=== PATIENT | female | born 1950 | race Caucasian/White ===

== ENCOUNTER 2023-10-11 10:11 | Emergency (ER) | payer MEDICARE, OTHER, SELFPAY ==
[2023-10-11 10:12] VITALS: BMI 27.0
[2023-10-11 10:14] VITALS: BP 129/72
--- NOTE | 2023-10-11 10:27 | ED.GENMED ---
History of Present Illness
General
Chief Complaint: Breathing Problem
Time Seen by Provider: 10/11/23 10:16
Travel History
Have you had any contact with someone who has COVID-19?: No
Do you have any symptoms of coronavirus? Fever > 100 degrees, chills, cough, shortness of breath, sore throat, loss of taste or smell, muscle aches, or headache?: Yes
Symptoms:: sob
History of Present Illness
History of Present Illness:
72-year-old female with history of COPD and hyperlipidemia presents to the emergency department for evaluation of shortness of breath that began abruptly overnight. She is 2 days status post right pleurodesis performed at the [place] [facility]
[place] secondary to recurrent pneumothoraces. She is on 2 L nasal cannula chronically. She denies any significant chest pain other than that the chest tube insertion site on the right. No reported fevers or chills. Denies any leg swelling
or calf pain. Does not take any anticoagulants
Past History
Past History
ED Past Medical History: COPD, Hypercholesterolemia, Other (History of chronic bronchitis, arthritis, and Bonita's thyroiditis, cataracts, anxiety, back pain, and dizziness) and Other (90% spontaneous pneumothorax September 10, 2023)
ED Past Surgical History: Appendectomy
Social History
Tobacco: Former smoker
Alcohol: Occasional
Personal:
Living: with family
Employment: Retired
Family History
Family History: Sudden (COPD and hypertension ) and Other
Review of Systems
Review of Systems
Allergies reviewed?: Yes
All Other Systems: ROS reviewed and negative except as documented in HPI and ROS
Phy Exam
Physical Exam
Physical Exam:
GEN: Well appearing, NAD, WDWN
Eyes: PERRLA, EOMs intact, no scleral icterus
HENT: NCAT, oral mucosa moist
Lungs: Poor inspiratory effort, diminished bibasilar sounds, no wheezing. Chest tube in the R lower chest wall, small amount of serosanguinous drainage, site is clean and dry
Cardiac: Tachycardic, regular
Abdomen: S, NT, ND, NABS, no masses or hepatosplenomegaly
Neuro: AO x 3
MSK: No gross deformity or ecchymosis. 1+ pitting edema BLE. No digital clubbing
Skin: No rashes, petechiae. Normal color, no pallor or jaundice.
Psych: Calm, cooperative, proper hygiene
Scores
Heart Failure Risk
Heart Failure Risk Score: Not Applicable
Course
Orders/Labs/Results
Orders:
Orders
10/11/23 10:17
EKG [Electrocardiogram (*1)] Urgent
Reason for Study: Shortness of Breath
10/11/23 10:18
EKG- Treatment ONCE
10/11/23 10:19
Complete Blood Count/With Diff Urgent
Comprehensive Metabolic Panel Urgent
NT-proBNP Urgent
Troponin I Urgent
Comment: ADD ON
10/11/23 10:24
CT Chest Pe Study Urgent
Comment:
Reason For Exam: SOB/tachycardia, 2d s/p pleurodesis
10/11/23 10:31
Add On- LAB Urgent
Tests Added?: trop
10/11/23 11:33
Oxycodone [Roxicodone] 5 mg PO NOW STA
10/11/23 12:29
Oxycodone [Roxicodone] 5 mg PO NOW STA
Abnormal Lab Results
10/11/23
10:19
RBC 3.31 L 10^6/uL
(4.20-5.40)
Hgb 9.7 L g/dL
(12.0-16.0)
Hct 28.9 L %
(37.0-47.0)
RDW 16.9 H %
(11.5-14.5)
Plt Count 438 H 10^3/uL
(130-400)
Absolute Neuts (auto) 7.0 H 10^3/uL
(1.4-6.5)
Absolute Lymphs (auto) 0.7 L 10^3/uL
(1.2-3.4)
Absolute Monos (auto) 0.8 H 10^3/uL
(0.1-0.6)
Neutrophils % 78.2 H %
(42.2-75.2)
Lymphocytes % 7.6 L %
(20.5-51.1)
Sodium 132 L mmol/L
(135-145)
Creatinine 0.5 L mg/dL
(0.6-1.0)
Glucose 115 H mg/dl
(70-99)
Total Protein 6.0 L g/dl
(6.3-8.2)
Albumin 3.3 L g/dl
(3.5-5.0)
10/11/23 10:19
10/11/23 10:19
Vital Signs
Initial and Last Documented VS:
Initial Vital Signs
Temp Pulse Resp Pulse Ox
98.4 F 103 18 100
10/11/23 10:12 10/11/23 10:12 10/11/23 10:12 10/11/23 10:12
Last Documented Vital Signs
Temp Pulse Resp BP Pulse Ox
98.4 F 101 14 93/47 100
10/11/23 10:12 10/11/23 13:45 10/11/23 13:45 10/11/23 13:00 10/11/23 10:43
MDM/Problems Addressed
MDM/Problems Addressed:
I reviewed the findings on CT angiogram from today with the patient's thoracic surgery team at [facility], apparently at time of discharge earlier this week she did have approximately a 40% pneumothorax. No evidence of PE.
Patient's symptoms are likely partially due to anxiety coupled with poor pain control. Discussed appropriate pain regimen, outpatient thoracic surgery follow-up recommended
Comment
Comment:
EKG independently interpreted by me shows normal sinus rhythm at a rate of 99 with frequent ventricular ectopy, significant limitation interpretation due to patient motion artifact, no obvious ST changes concerning for ischemia
*Critical Care Note
Total Time (30-74mins, 75-104mins- exclusive of procedures): Not Applicable
ED Attending Note
-
Portions of this chart may have been created with voice recognition software.� Occasional wrong word or��sound alike� substitutions may have occurred due to the inherent limitations of voice recognition software.
Discharge Plan
Departure
Patient Disposition: Home (Routine Discharge)
Date of Disposition: 10/11/23
Time of Disposition: 13:12
Patient with high blood pressure during this ER visit?: No
Discharge Problem:
Post-operative pain, Pneumothorax
Instructions: Shortness of Breath (Dyspnea) (DC)
Prescriptions:
No Action
ascorbic acid (vitamin C) [Vitamin C] 1,000 MG tablet
1,000 mg PO DAILY
meloxicam 15 MG tablet
15 mg PO DAILY
levothyroxine 100 MCG tablet
100 mcg PO MOTUWETHFRSA@0700
lorazepam 1 MG tablet
1 mg PO HS
Patient Comments:
08/25/2023, patient filled this medication on 06/07/2023 for 90 tablets according to PDMP.
albuterol sulfate 2.5 mg /3 mL (0.083 %) Solution For Nebulization
2.5 mg INHALATION R Q4HPRN PRN (Reason: respiratory infection)
montelukast [Singulair] 10 mg Tablet
10 mg PO HS
levalbuterol tartrate [Xopenex HFA] 45 mcg/actuation Hfa Aerosol Inhaler
2 inh INHALATION R Q4HPRN PRN (Reason: sob/wheezing)
budesonide-formoterol [Symbicort] 160-4.5 mcg/actuation Hfa Aerosol Inhaler
1 inh INHALATION R BID
azithromycin 250 mg Tablet
250 mg PO MOWEFR
aspirin 81 mg Tablet,Delayed Release (Dr/Ec)
81 mg PO DAILY
simvastatin 40 mg Tablet
40 mg PO HS
potassium gluconate 595 mg (99 mg) Tablet
595 mg PO DAILY
Spiriva Respimat 2.5 mcg/actuation Mist
2 puff INHALATION R DAILY
fiber
6 tab PO NOON
docusate sodium [Stool Softener] 100 mg Capsule
200 mg PO DAILY PRN (Reason: constipation)
Women's One Daily
1 tab PO DAILY
calcium citrate-vitamin D3
1 tab PO DAILY
acetaminophen [Tylenol] 325 mg Tablet
650 mg PO Q6H PRN (Reason: mild pain)
benzonatate 100 mg capsule
200 mg PO TID
Referrals:
Reema Lynn DO [Family Provider] -
Activity Restrictions/Additional Instructions:
Take your medications on a schedule as we discussed
Interventions
Interventions:
*Risk Screen - Suicide Last Done: 10/11/23 10:12
*General Assessment Last Done: 10/11/23 10:12
*Neglect/Abuse Screening Last Done: 10/11/23 10:12
ED- Fall Risk Assessment Last Done: 10/11/23 10:43
*ED COVID-19 Vaccine History Last Done: 10/11/23 10:12
*Nursing Disposition Last Done: 10/11/23 14:02
ED- Cardiac Assessment Last Done: 10/11/23 10:43
ED- Pulmonary Assessment Last Done: 10/11/23 10:43
Discharge Date and Time
Discharge Date/Time: 10/11/23 14:02
[2023-10-11 10:35] LABS: % Basophils 0.8 % (0-2); % Eosinophils 3.8 % (0-6); % Immature Granulocytes 0.4 % (0-0.5); % Lymphocytes 7.6 % (20.5-51.1); % Monocytes 9.2 % (1.7-9.3); % Neutrophils 78.2 % (42.2-75.2); Absolute Basophils 0.1 10^3/uL (0-0.2); Absolute Eosinophils 0.3 10^3/uL (0-0.7); Absolute Lymphocytes 0.7 10^3/uL (1.2-3.4); Absolute Monocytes 0.8 10^3/uL (0.1-0.6); Hematocrit 28.9 % (37.0-47.0); Hemoglobin 9.7 g/dL (12.0-16.0); Mean Corp Hgb Conc. 33.6 g/dL (33.0-37.0); Mean Corpuscular Hgb 29.3 pg (27.0-31.0); Mean Corpuscular Volume 87.3 fL (81.0-99.0); Mean Platelet Volume 9.3 fL (7.4-10.4); Nucleated Red Blood Cells % 0 %; Platelet Count 438 10^3/uL (130-400); Red Blood Cell Count 3.31 10^6/uL (4.20-5.40); Red Cell Dist. Width 16.9 % (11.5-14.5)
[2023-10-11 10:56] LABS: ALT (SGPT) 14 U/L (0-35); AST (SGOT) 26 U/L (14-36); Albumin 3.3 g/dl (3.5-5.0); Alkaline Phosphatase 94 U/L (38-126); Blood Urea Nitrogen 10 mg/dl (7-17); Calcium 9.1 mg/dl (8.4-10.2); Carbon Dioxide 25 mmol/L (22-30); Chloride 102 mmol/L (98-107); Estimated Creatinine Clearance 76 ml/min; Glucose 115 mg/dl (70-99); Potassium 4.3 mmol/L (3.5-5.1); Sodium 132 mmol/L (135-145); Total Bilirubin 0.5 mg/dl (0.2-1.3); eGFR > 60.00
[2023-10-11 11:00] VITALS: BP 104/61
[2023-10-11 11:01] LABS: NT-proBNP 1040 pg/ml; Troponin I < 0.012 ng/ml
[2023-10-11] MEDS: ROXICODONE 5 MG PO ×2 (11:35→13:05)
[2023-10-11 13:00] VITALS: BP 93/47
== END 2023-10-11 14:02 | disposition home or self-care (01) ==
LOC: EMR 10:11
PROVIDERS: EMERGENCY PHYSICIAN Student in an Organized Health Care Education/Training Program; FAMILY PHYSICIAN Family Medicine
DX: G89.18 Other acute postprocedural pain (principal); J95.811 Postprocedural pneumothorax; J44.9 Chronic obstructive pulmonary disease, unspecified; E78.00 Pure hypercholesterolemia, unspecified; F41.9 Anxiety disorder, unspecified; E06.3 Autoimmune thyroiditis; Z46.82 Encounter for fitting and adjustment of non-vascular catheter; Z82.49 Family history of ischemic heart disease and other diseases of the circulatory system; Z87.891 Personal history of nicotine dependence; Z90.49 Acquired absence of other specified parts of digestive tract
CPT/HCPCS: 99283; 71275; 80053; 83880; 84484; 85025; 93005; Q9967

== ENCOUNTER 2023-10-31 13:36 | Emergency (ER) | payer MEDICARE, OTHER, SELFPAY ==
[2023-10-31 13:42] VITALS: BP 127/88
[2023-10-31 14:13] VITALS: BMI 25.5
--- NOTE | 2023-10-31 14:16 | ED.GENMED ---
History of Present Illness
General
Chief Complaint: Chest Problem
Source: patient
Exam Limitations: none
Time Seen by Provider: 10/31/23 13:52
Travel History
Have you had any contact with someone who has COVID-19?: No
Do you have any symptoms of coronavirus? Fever > 100 degrees, chills, cough, shortness of breath, sore throat, loss of taste or smell, muscle aches, or headache?: No
History of Present Illness
History of Present Illness:
72-year-old female with history of recurrent pneumothoraces presents complaining of increased chest pain starting this morning and getting worse. She was here several weeks ago found to have a recurrent pneumothoraces and was sent to [facility]
[place]. She had a pleurodesis procedure performed and a chest tube placed. The chest tube has been draining up until this morning. She feels as though it is clogged. She was sent in for an outpatient x-ray by her CT surgery group and was
then recommended to come here for evaluation. She denies fevers. No new cough. She is not anticoagulated. No other complaints at this time
Past History
Past History
ED Past Medical History: COPD, Hypercholesterolemia, Other (History of chronic bronchitis, arthritis, and Bonita's thyroiditis, cataracts, anxiety, back pain, and dizziness) and Other (90% spontaneous pneumothorax September 10, 2023)
ED Past Surgical History: Appendectomy
Social History
Tobacco: Former smoker
Alcohol: Occasional
Personal:
Living: with family
Employment: Retired
Family History
Family History: Sudden (COPD and hypertension ) and Other
Phy Exam
Physical Exam
Physical Exam:
General: Well-developed female no acute respiratory distress
HEENT: Normocephalic atraumatic neck is supple
Heart: Regular rate and rhythm no murmurs
Lungs: diminished on the right
Extremities: No cyanosis
Course
Orders/Labs/Results
Orders:
Orders
10/31/23 14:03
HYDROmorphone [Dilaudid] 0.5 mg IV NOW STA
10/31/23 15:12
Complete Blood Count/With Diff Urgent
10/31/23 16:17
Comprehensive Metabolic Panel Urgent
10/31/23 17:04
Acetaminophen [Tylenol] 650 mg PO NOW STA
Gabapentin [Neurontin] 300 mg PO NOW STA
Oxycodone [Roxicodone] 5 mg PO NOW STA
Abnormal Lab Results
10/31/23 10/31/23
15:12 16:17
RBC 4.04 L 10^6/uL
(4.20-5.40)
Hgb 11.7 L g/dL
(12.0-16.0)
Hct 36.0 L %
(37.0-47.0)
MCHC 32.5 L g/dL
(33.0-37.0)
RDW 16.4 H %
(11.5-14.5)
Absolute Monos (auto) 0.8 H 10^3/uL
(0.1-0.6)
Monocytes % 10.6 H %
(1.7-9.3)
Sodium 134 L mmol/L
(135-145)
Creatinine 0.5 L mg/dL
(0.6-1.0)
Total Protein 5.9 L g/dl
(6.3-8.2)
Albumin 3.2 L g/dl
(3.5-5.0)
10/31/23 15:12
10/31/23 16:17
Vital Signs
Initial and Last Documented VS:
Initial Vital Signs
Temp Pulse Resp BP Pulse Ox
98.7 F 100 18 127/88 95
10/31/23 13:42 10/31/23 13:42 10/31/23 13:42 10/31/23 13:42 10/31/23 13:42
Last Documented Vital Signs
Temp Pulse Resp BP Pulse Ox
98.7 F 96 20 127/88 100
10/31/23 13:42 10/31/23 14:28 10/31/23 14:28 10/31/23 13:42 10/31/23 14:28
MDM/Problems Addressed
Differential Diagnosis Includes:
I have reviewed the x-ray done earlier today which demonstrates now a 50% pneumothorax on the right side with chest tube in place. This is somewhat larger in size than last x-ray. Despite the pneumothorax patient is not in respiratory distress
satting at 99% on room air. Will check labs administer pain medicine call placed into CT surgery PA for recommendation
*Critical Care Note
Total Time (30-74mins, 75-104mins- exclusive of procedures): Not Applicable
Update Note
Update Note:
CT surgery staff came down and exchanged the Heimlich valve at the end of the patient's chest tube. The valve is now functioning. She was given her regular scheduled medications afterwards and was observed and is now stable for discharge. Relayed
this information to the patient's CT surgery staff at [facility] as well
ED Attending Note
-
Portions of this chart may have been created with voice recognition software.� Occasional wrong word or��sound alike� substitutions may have occurred due to the inherent limitations of voice recognition software.
Discharge Plan
Departure
Patient Disposition: Home (Routine Discharge)
Date of Disposition: 10/31/23
Time of Disposition: 17:57
Patient with high blood pressure during this ER visit?: No
Discharge Problem:
chest tube malfunction
Instructions: Chest Tubes
Prescriptions:
No Action
levothyroxine 100 MCG tablet
100 mcg PO MOTUWETHFRSA@0700
lorazepam 1 MG tablet
1 mg PO HS
Patient Comments:
10/31/23--patient filled this medication on 04/30/23 for 90 tablets according to PDMP.
montelukast [Singulair] 10 mg Tablet
10 mg PO HS
levalbuterol tartrate [Xopenex HFA] 45 mcg/actuation Hfa Aerosol Inhaler
2 inh INHALATION R Q4HPRN PRN (Reason: sob/wheezing)
budesonide-formoterol [Symbicort] 160-4.5 mcg/actuation Hfa Aerosol Inhaler
1 inh INHALATION R BID
simvastatin 40 mg Tablet
40 mg PO HS
Spiriva Respimat 2.5 mcg/actuation Mist
2 puff INHALATION R DAILY
docusate sodium [Stool Softener] 100 mg Capsule
200 mg PO DAILY PRN (Reason: constipation)
acetaminophen [Tylenol] 325 mg Tablet
650 mg PO Q6HPRN PRN (Reason: mild pain)
gabapentin 300 mg Capsule
300 mg PO BID
oxycodone 5 mg Tablet
5 mg PO Q6HPRN PRN (Reason: severe pain)
Referrals:
Reema Lynn DO [Family Provider] -
Activity Restrictions/Additional Instructions:
Continue current medication regimen. Please follow-up with your thoracic surgeons at [facility].
Interventions
Interventions:
*Risk Screen - Suicide Last Done: 10/31/23 14:30
*General Assessment Last Done: 10/31/23 14:30
*Neglect/Abuse Screening Last Done: 10/31/23 14:30
ED- Fall Risk Assessment Last Done: 10/31/23 14:30
*ED COVID-19 Vaccine History Last Done: 10/31/23 14:30
ED- Cardiac Assessment Last Done: 10/31/23 14:30
ED- Pulmonary Assessment Last Done: 10/31/23 14:30
[2023-10-31] MEDS: DILAUDID 0.5 MG IV (14:21)
[2023-10-31 15:18] LABS: % Basophils 0.8 % (0-2); % Eosinophils 2.8 % (0-6); % Immature Granulocytes 0.3 % (0-0.5); % Lymphocytes 21.4 % (20.5-51.1); % Monocytes 10.6 % (1.7-9.3); % Neutrophils 64.1 % (42.2-75.2); Absolute Basophils 0.1 10^3/uL (0-0.2); Absolute Eosinophils 0.2 10^3/uL (0-0.7); Absolute Lymphocytes 1.7 10^3/uL (1.2-3.4); Absolute Monocytes 0.8 10^3/uL (0.1-0.6); Absolute Neutrophils 5.1 10^3/uL (1.4-6.5); Hemoglobin 11.7 g/dL (12.0-16.0); Mean Corp Hgb Conc. 32.5 g/dL (33.0-37.0); Mean Corpuscular Volume 89.1 fL (81.0-99.0); Mean Platelet Volume 10.1 fL (7.4-10.4); Nucleated Red Blood Cells % 0 %; Platelet Count 306 10^3/uL (130-400); Red Blood Cell Count 4.04 10^6/uL (4.20-5.40); Red Cell Dist. Width 16.4 % (11.5-14.5); White Blood Cell Count 7.9 10^3/uL (4.8-10.8)
[2023-10-31 16:37] LABS: ALT (SGPT) 10 U/L (0-35); AST (SGOT) 21 U/L (14-36); Albumin 3.2 g/dl (3.5-5.0); Alkaline Phosphatase 75 U/L (38-126); Blood Urea Nitrogen 13 mg/dl (7-17); Calcium 8.9 mg/dl (8.4-10.2); Carbon Dioxide 25 mmol/L (22-30); Chloride 106 mmol/L (98-107); Estimated Creatinine Clearance 67 ml/min; Glucose 87 mg/dl (70-99); Sodium 134 mmol/L (135-145); Total Bilirubin 0.5 mg/dl (0.2-1.3); Total Protein 5.9 g/dl (6.3-8.2); eGFR > 60.00
[2023-10-31] MEDS: NEURONTIN 300 MG PO (17:46)
[2023-10-31] MEDS: ROXICODONE 5 MG PO (17:46)
[2023-10-31] MEDS: TYLENOL 650 MG PO (17:46)
[2023-10-31 17:50] VITALS: BP 132/86
== END 2023-10-31 18:36 | disposition home or self-care (01) ==
LOC: EMR 13:36
PROVIDERS: Physician Assistant; EMERGENCY PHYSICIAN Emergency Medicine; FAMILY PHYSICIAN Family Medicine
DX: T85.698A Other mechanical complication of other specified internal prosthetic devices, implants and grafts, initial encounter (principal); X58.XXXA Exposure to other specified factors, initial encounter; J44.9 Chronic obstructive pulmonary disease, unspecified; E78.00 Pure hypercholesterolemia, unspecified; E06.3 Autoimmune thyroiditis; F41.9 Anxiety disorder, unspecified; Z82.49 Family history of ischemic heart disease and other diseases of the circulatory system; Z87.891 Personal history of nicotine dependence; Z90.49 Acquired absence of other specified parts of digestive tract
CPT/HCPCS: 99283; 96374; 71046; 80053; 85025

== ENCOUNTER → 2023-11-21 12:43 | Outpatient (REF) | payer MEDICARE, OTHER, SELFPAY | LOC: HWRAD 12:43 | PROVIDERS: ATTENDING PHYSICIAN Internal Medicine Critical Care Medicine; FAMILY PHYSICIAN Family Medicine | DX: J93.83 Other pneumothorax (principal) | CPT/HCPCS: 71046 ==

== ENCOUNTER → 2023-12-26 10:11 | Outpatient (REF) | payer MEDICARE, OTHER, SELFPAY | LOC: HWRAD 10:11 | PROVIDERS: ATTENDING PHYSICIAN Internal Medicine Critical Care Medicine; FAMILY PHYSICIAN Family Medicine | DX: J41.8 Mixed simple and mucopurulent chronic bronchitis (principal); J43.2 Centrilobular emphysema; J44.1 Chronic obstructive pulmonary disease with (acute) exacerbation | CPT/HCPCS: 71046 ==

== ENCOUNTER → 2024-04-28 12:14 | Outpatient (REF) | payer MEDICARE, OTHER, SELFPAY | LOC: HWRAD 12:14 | PROVIDERS: ATTENDING PHYSICIAN Internal Medicine Critical Care Medicine; FAMILY PHYSICIAN Family Medicine | DX: J43.2 Centrilobular emphysema (principal) | CPT/HCPCS: 71046 ==

== ENCOUNTER → 2024-07-22 12:39 | Outpatient (REF) | payer MEDICARE, OTHER, SELFPAY | LOC: HWRAD 12:39 | PROVIDERS: ATTENDING PHYSICIAN Internal Medicine; FAMILY PHYSICIAN Family Medicine | DX: M54.51 Vertebrogenic low back pain (principal) | CPT/HCPCS: 72110 ==

== ENCOUNTER 2024-12-28 23:36 | Emergency (ER) | payer MEDICARE, OTHER, SELFPAY ==
[2024-12-28 23:40] VITALS: BP 140/111
--- NOTE | 2024-12-28 23:43 | ED.GENMED ---
History of Present Illness
General
Chief Complaint: Suicidal Ideation
Source: patient
Time Seen by Provider: 12/28/24 23:38
Nursing documentation reviewed up to this point in time: agreed with
History of Present Illness
History of Present Illness:
74-year-old female presents via EMS after acute suicide attempt. She admits to drinking whiskey and taking 7 Ativan. she texted her daughter 'see you in [place]'. Patient recently lost her in September and has been depressed since. History
is limited due to patient condition.
Past History
Past History
ED Past Medical History: COPD, Hypercholesterolemia, Other (History of chronic bronchitis, arthritis, and Bonita's thyroiditis, cataracts, anxiety, back pain, and dizziness) and Other (90% spontaneous pneumothorax September 10, 2023)
ED Past Surgical History: Appendectomy
Social History
Tobacco: Former smoker
Alcohol: Occasional
Personal:
Living: with family
Employment: Retired
Family History
Family History: Sudden (COPD and hypertension ) and Other
Review of Systems
Review of Systems
All Other Systems: Not applicable
Constitutional: Reports no symptoms
EENT: Reports no symptoms
Respiratory: Reports no symptoms
Cardiac: Reports no symptoms
ABD/GI: Reports nausea
: Reports no symptoms
Musculoskeletal: Reports no symptoms
Skin: Reports no symptoms
Neurological: Reports no symptoms
Endocrine: Reports no symptoms
Hematologic/Lymphatic: Reports no symptoms
Psychiatric: Reports depression, anxiety and suicidal
Phy Exam
General Physical Exam
General Presentation: moderate distress
General age: appears stated age
General Skin: warm and dry
General Habitus: normal
General Mental: alert
General Hydration: appears well hydrated
ENT Exam
ENT Exam: EOMI, pharynx normal, neck supple and normocephalic
Eye Exam
Eye Exam: PERRL, cornea clear and conjunctiva normal
Cardiovascular Exam
Cardiovascular Exam: regular rate/rhythm and no edema
Pulmonary Exam
Pulmonary Exam: lungs clear and no respiratory distress
Gastrointestinal Exam
Gastrointestinal Exam: normal bowel sounds, non tender, soft, no organomegaly, no pulsatile mass and non distended
Neurological Exam
Neurological Exam: alert and oriented x3 (somnulent)
Musculoskeletal Exam
Musculoskeletal Exam: full ROM
Skin Exam
Skin Exam: normal color, warm/dry, no rash and no petechia
Psychiatric Exam
Psychiatric Exam: normal mood/affect
Course
Orders/Labs/Results
Orders:
Orders
12/28/24 23:40
Crisis Consult Urgent
Reason for Consult: overdose, etoh/ativan
Acetaminophen Urgent
Alcohol Urgent
Complete Blood Count/With Diff Urgent
Comprehensive Metabolic Panel Urgent
PTT Urgent
Prothrombin Time Urgent
Salicylate Urgent
Urinalysis Reflex To Culture Urgent
Date Specimen was Collected: 12/29/24
Time Specimen was Collected: 04:34
Urine Drug Abuse Screen Urgent
Date Specimen was Collected: 12/29/24
Time Specimen was Collected: 04:34
0.9% Sodium Chloride 500 ml [Nss] 500 ml IV BOLUS
12/28/24 23:41
1:1 Observation - Suicide/ Violent Behavior As Directed
Crisis Consult Urgent
Reason for Consult: suicidal ideation/ overdose
12/29/24 01:30
Oxygen Therapy [O2 Therapy] [RESP] Urgent
Titrate/Wean O2 to maintain O2 sat greater than (%): 92
12/29/24 04:35
Fentanyl, Urine Urgent
12/29/24 05:41
Acetaminophen [Tylenol] 500 mg .ROUTE .STK-MED ONE
12/29/24 05:44
Acetaminophen [Tylenol] 500 mg PO NOW STA
12/29/24 13:03
Electrocardiogram (*1) Urgent
Reason for Study: Fatigue / Weakness
EKG- Treatment ONCE
12/29/24 13:13
Levothyroxine [Synthroid] 100 mcg PO NOW STA
12/29/24 13:16
Gabapentin [Neurontin] 300 mg PO NOW STA
12/29/24 13:21
Budesonide/Formoterol 80/4.5 [Symbicort 80/4.5 Mcg Inhaler] 2 puff INH R NOW STA
12/29/24 13:31
Tiotropium [place] 2.5 Mcg [Spiriva Respimat 2.5 Mcg] 2 puff INH R NOW STA
12/29/24 15:19
COVID-19 Antigen Urgent
Source: Nasal Swab
12/29/24 22:08
Gabapentin [Neurontin] 300 mg PO NOW STA
12/29/24 23:14
Lorazepam [Ativan] 1 mg PO NOW STA
Abnormal Lab Results
12/29/24 12/29/24
00:42 04:35
RBC 3.56 L 10^6/uL
(4.20-5.40)
Hgb 11.2 L g/dL
(12.0-16.0)
Hct 32.4 L %
(37.0-47.0)
MCH 31.5 H pg
(27.0-31.0)
RDW 14.6 H %
(11.5-14.5)
MPV 10.6 H fL
(7.4-10.4)
Creatinine 0.5 L mg/dL
(0.6-1.0)
Salicylates < 1.0 L mg/dl
(2.0-20.0)
Acetaminophen < 10 L ug/ml
(10-30)
U Benzodiazepines Scrn Positive H
(Negative)
12/29/24 00:42
12/29/24 00:42
Vital Signs
Initial and Last Documented VS:
Initial Vital Signs
BP
140/111
12/28/24 23:40
Last Documented Vital Signs
Temp Pulse Resp BP Pulse Ox
98.0 F 91 18 138/79 96
12/29/24 21:00 12/29/24 21:00 12/29/24 21:00 12/29/24 21:00 12/29/24 21:00
*Critical Care Note
Total Time (30-74mins, 75-104mins- exclusive of procedures): Not Applicable
ED Attending Note
-
Portions of this chart may have been created with voice recognition software.� Occasional wrong word or��sound alike� substitutions may have occurred due to the inherent limitations of voice recognition software.
Discharge Plan
Departure
Patient Disposition: Psych Facility
Date of Disposition: 12/29/24
Time of Disposition: 04:03
Condition: Fair
Discharge Problem:
Suicide attempt, Alcohol intoxication
Prescriptions:
No Action
levothyroxine 100 MCG tablet
100 mcg PO MOTUWETHFRSA@0700
lorazepam 1 MG tablet
1 mg PO HS
montelukast [Singulair] 10 mg Tablet
10 mg PO HS
levalbuterol tartrate [Xopenex HFA] 45 mcg/actuation Hfa Aerosol Inhaler
2 inh INHALATION R Q4HPRN PRN (Reason: sob/wheezing)
budesonide-formoterol [Symbicort] 160-4.5 mcg/actuation Hfa Aerosol Inhaler
2 inh INHALATION R BID
simvastatin 40 mg Tablet
40 mg PO HS
Spiriva Respimat 2.5 mcg/actuation Mist
2 puff INHALATION R DAILY
acetaminophen [Tylenol] 325 mg Tablet
650 mg PO BID
gabapentin 300 mg Capsule
300 mg PO BID
ascorbic acid (vitamin C) [Vitamin C] 1,000 mg Tablet
1,000 mg PO DAILY
azithromycin 250 mg Tablet
250 mg PO MOWEFR
calcium polycarbophil [FiberCon] 625 mg Tablet
1,875 mg PO BID
cholecalciferol (vitamin D3) [Vitamin D3] 25 mcg (1,000 unit) Tablet
25 mcg PO DAILY
calcium carbonate-vitamin D3 [Calcium 500 + D] 500 mg-10 mcg (400 unit) Tablet
2 tab PO DAILY
Referrals:
UNKNOWN - PT DOES,NOT KNOW [Family Provider] -
Interventions
Interventions:
*Risk Screen - Suicide Last Done: 12/28/24 23:38
*General Assessment Last Done: 12/28/24 23:38
*Neglect/Abuse Screening Last Done: 12/28/24 23:38
*ED- Fall Risk Assessment Last Done: 12/28/24 23:38
*ED COVID-19 Vaccine History Last Done: 12/28/24 23:38
*Nursing Disposition Last Done: 12/30/24 02:00
ED-Psychological Assessment Last Done: 12/28/24 23:47
Discharge Date and Time
Discharge Date/Time: 12/30/24 02:00
Print Language: ISRAELI
[2024-12-29] VITALS (13 sets, daily range): BP systolic 108–155; BP diastolic 57–88
[2024-12-29] MEDS: NSS 500 IV (01:06)
[2024-12-29 01:07] LABS: INR 0.89; PT 12.4 Sec (11.4-14.6)
[2024-12-29 01:08] LABS: ALT (SGPT) 19 U/L (0-35); AST (SGOT) 26 U/L (14-36); Acetaminophen < 10 ug/ml (10-30); Albumin 4.1 g/dl (3.5-5.0); Alcohol 111 mg/dl; Alkaline Phosphatase 60 U/L (38-126); Blood Urea Nitrogen 16 mg/dl (7-17); Calcium 9.6 mg/dl (8.4-10.2); Carbon Dioxide 22 mmol/L (22-30); Chloride 102 mmol/L (98-107); Estimated Creatinine Clearance 78 ml/min; Glucose 82 mg/dl (70-99); Potassium 3.9 mmol/L (3.5-5.1); Salicylate < 1.0 mg/dl (2.0-20.0); Sodium 136 mmol/L (135-145); Total Bilirubin 0.4 mg/dl (0.2-1.3); Total Protein 6.5 g/dl (6.3-8.2); eGFR > 60.00
[2024-12-29 01:09] LABS: % Basophils 0.9 % (0-2); % Eosinophils 3.1 % (0-6); % Immature Granulocytes 0.3 % (0-0.5); % Lymphocytes 23.3 % (20.5-51.1); % Monocytes 7.9 % (1.7-9.3); % Neutrophils 64.5 % (42.2-75.2); Absolute Basophils 0.1 10^3/uL (0-0.2); Absolute Eosinophils 0.2 10^3/uL (0-0.7); Absolute Lymphocytes 1.6 10^3/uL (1.2-3.4); Absolute Monocytes 0.5 10^3/uL (0.1-0.6); Absolute Neutrophils 4.3 10^3/uL (1.4-6.5); Hematocrit 32.4 % (37.0-47.0); Hemoglobin 11.2 g/dL (12.0-16.0); Mean Corp Hgb Conc. 34.6 g/dL (33.0-37.0); Mean Corpuscular Hgb 31.5 pg (27.0-31.0); Nucleated Red Blood Cells % 0 %; Red Blood Cell Count 3.56 10^6/uL (4.20-5.40); Red Cell Dist. Width 14.6 % (11.5-14.5); White Blood Cell Count 6.7 10^3/uL (4.8-10.8)
[2024-12-29 01:24] LABS: APTT 26.1 Sec (23.4-35.0)
[2024-12-29 01:28] LABS: Mean Platelet Volume 10.6 fL (7.4-10.4); Platelet Count 260 10^3/uL (130-400)
[2024-12-29 04:43] LABS: Urine Albumin Negative (Neg - Trace); Urine Bilirubin Negative (Negative); Urine Character Clear (Clear); Urine Color Yellow; Urine Glucose Negative (Negative); Urine Ketone Negative (Negative); Urine Leukocyte Negative (Negative); Urine Nitrite Negative (Negative); Urine Occult Blood Negative (Negative); Urine Specific Gravity 1.015 (<1.030); Urine Urobilinogen Negative (Neg - 1+)
[2024-12-29 04:58] LABS: Amphetamines Negative (Negative); Barbiturates Negative (Negative); Benzodiazepines Positive (Negative); Buprenorphine Negative (Negative); Cocaine Negative (Negative); Marijuana Negative (Negative); Methadone Negative (Negative); Methamphetamines Negative (Negative); Opiates Negative (Negative); Phencyclidine Negative (Negative); Tricyclic Antidepressants Negative (Negative)
[2024-12-29 05:21] LABS: Fentanyl, Urine Negative (Negative)
[2024-12-29] MEDS: TYLENOL 500 MG PO (05:44)
[2024-12-29] MEDS: SYNTHROID 100 MCG PO (13:36)
[2024-12-29] MEDS: NEURONTIN 300 MG PO ×2 (13:36→22:12)
[2024-12-29] MEDS: SPIRIVA RESPIMAT 2.5 MCG 2 PUFF INH (13:44)
[2024-12-29] MEDS: SYMBICORT 80/4.5 MCG INHALER 2 PUFF INH (13:44)
[2024-12-29 15:41] LABS: COVID-19 Antigen Negative (Negative)
[2024-12-29] MEDS: ATIVAN 1 MG PO (23:16)
== END 2024-12-30 02:00 ==
LOC: EMR 23:36
PROVIDERS: EMERGENCY PHYSICIAN Student in an Organized Health Care Education/Training Program
DX: T14.91XA Suicide attempt, initial encounter (principal); T42.4X2A Poisoning by benzodiazepines, intentional self-harm, initial encounter; T51.92XA Toxic effect of unspecified alcohol, intentional self-harm, initial encounter; F10.129 Alcohol abuse with intoxication, unspecified; Z11.52 Encounter for screening for COVID-19; Z87.891 Personal history of nicotine dependence
CPT/HCPCS: 99285; 96360; 96361; 94640; 80053; 80143; 80179; 80306; 80307; 81003; 82077; 85025; 85610; 85730; 87811; 93005

== ENCOUNTER 2025-02-13 16:20 | Emergency (ER) | payer MEDICARE, OTHER, SELFPAY ==
[2025-02-13 16:22] VITALS: BP 162/107
[2025-02-13 16:48] LABS: % Basophils 0.9 % (0-2); % Eosinophils 1.6 % (0-6); % Immature Granulocytes 0.3 % (0-0.5); % Lymphocytes 21.6 % (20.5-51.1); % Monocytes 10.9 % (1.7-9.3); % Neutrophils 64.7 % (42.2-75.2); Absolute Basophils 0.1 10^3/uL (0-0.2); Absolute Eosinophils 0.1 10^3/uL (0-0.7); Absolute Lymphocytes 1.7 10^3/uL (1.2-3.4); Absolute Monocytes 0.8 10^3/uL (0.1-0.6); Hematocrit 38.5 % (37.0-47.0); Mean Corp Hgb Conc. 33.8 g/dL (33.0-37.0); Mean Corpuscular Hgb 31.2 pg (27.0-31.0); Mean Corpuscular Volume 92.3 fL (81.0-99.0); Mean Platelet Volume 9.1 fL (7.4-10.4); Nucleated Red Blood Cells % 0 %; Platelet Count 319 10^3/uL (130-400); Red Blood Cell Count 4.17 10^6/uL (4.20-5.40); Red Cell Dist. Width 13.8 % (11.5-14.5); White Blood Cell Count 7.6 10^3/uL (4.8-10.8)
[2025-02-13 17:05] LABS: ALT (SGPT) 21 U/L (0-35); AST (SGOT) 28 U/L (14-36); Albumin 4.5 g/dl (3.5-5.0); Alkaline Phosphatase 74 U/L (38-126); Blood Urea Nitrogen 18 mg/dl (7-17); Calcium 9.6 mg/dl (8.4-10.2); Carbon Dioxide 23 mmol/L (22-30); Chloride 105 mmol/L (98-107); Glucose 93 mg/dl (70-99); Potassium 4.3 mmol/L (3.5-5.1); Sodium 135 mmol/L (135-145); Total Bilirubin 0.4 mg/dl (0.2-1.3); Total Protein 7.2 g/dl (6.3-8.2); eGFR > 60.00
--- NOTE | 2025-02-13 19:03 | ED.GENMED ---
History of Present Illness
General
Chief Complaint: Chest Problem
Time Seen by Provider: 02/13/25 17:35
History of Present Illness
History of Present Illness:
Note:
CHIEF COMPLAINT(S)
Sudden enlargement and pain of the right breast with associated armpit pain.
HISTORY OF PRESENT ILLNESS
The patient is a 74-year-old female who presents with sudden onset enlargement of the right breast, associated with pain. She noted that her breast became so large that it no longer fit into her bra. The pain extends into the armpit and is described
as very sore. The patient described the sensation as different from her usual nerve pain resulting from previous lung surgeries. There is mild redness and asymmetry in breast size on examination, with tenderness predominantly in the mid-breast and
the upper outer quadrant. She reported no prior trauma to the breast or any nipple discharge.
CHRONIC MEDICAL CONDITIONS SIGNIFICANTLY AFFECTING CARE
History of multiple lung surgeries.
PAST SURGICAL HISTORY
Lung surgeries (details not specified).
Shoulder surgery.
Lumpectomy was performed on the right breast years ago, which was non-malignant.
PHYSICAL EXAM
Nursing notes reviewed and vital signs reviewed.
-GEN: Well appearing, NAD, WDWN
HEENT: Oral mucosa moist, no scleral icterus
Breast: Asymmetry of the right breast compared to the left. Tenderness to palpation in the mid-breast and upper outer quadrant. Mild redness noted. No palpable lymphadenopathy in the axilla. No obvious skin changes compatible with cellulitis. No
nipple discharge.
Cardiac: Regular rate
Lung: No respiratory distress, no tachypnea
MSK: No gross deformity or injuries
Skin: Good color, no pallor or jaundice, no rashes
Neuro: AO x3, moves all extremities freely
Psych: Calm, cooperative
PROBLEM LIST
Acute Problems:
- Sudden enlargement and pain of the right breast.
- Associated pain extending into the armpit.
Chronic Problems:
- History of lung surgeries.
- History of shoulder surgery.
- Previous lumpectomy with non-malignant result.
PLAN
1. Obtain imaging to better assess the internal structures of the breast. Ultrasound preferred, but logistical challenges noted; potential use of a computed tomography scan as a surrogate discussed.
2. Consider infectious causes or malignancy based on imaging results.
3. Coordination with radiology to facilitate appropriate imaging modality.
DIFFERENTIAL DIAGNOSIS
The Differential Diagnosis includes, in no particular order and is not limited to:
1. Breast abscess.
2. Infectious mastitis.
3. Inflammatory breast cancer.
4. Non-inflammatory breast cancer.
5. Lymphangitis.
Disposition:
SUMMARY OF ENCOUNTER
The patient is a 74-year-old female who presented with sudden onset of right breast enlargement and pain, extending into the armpit. The examination revealed mild redness, tenderness, and asymmetry in breast size. Labs were unremarkable, and a
limited breast ultrasound showed no evidence of fluid collection.
ASSESSMENT
The presentation is consistent with a presumptive soft tissue infection of the breast. However, malignancy needs to be ruled out.
PLAN
The patient is advised to follow up with her primary care physician or a breast specialist for a mammogram and potentially a diagnostic breast ultrasound to rule out malignancy.
FOLLOW-UP INSTRUCTIONS
The patient is advised to schedule a follow-up appointment with her primary care physician and/or breast specialist for further evaluation, including a mammogram and potential diagnostic ultrasound.
MEDICAL DECISION MAKING
A differential diagnosis of soft tissue infection versus malignancy was considered. Due to the absence of fluid collection on ultrasound and unremarkable labs, outpatient management with follow-up diagnostics was deemed appropriate. The need for
further imaging to rule out malignancy was highlighted as part of the follow-up plan.
Past History
Past History
ED Past Medical History: COPD, Hypercholesterolemia, Other (History of chronic bronchitis, arthritis, and Bonita's thyroiditis, cataracts, anxiety, back pain, and dizziness) and Other (90% spontaneous pneumothorax September 10, 2023)
ED Past Surgical History: Appendectomy
Social History
Tobacco: Former smoker
Alcohol: Occasional
Personal:
Living: with family
Employment: Retired
Family History
Family History: Sudden (COPD and hypertension ) and Other
Phy Exam
Physical Exam
Physical Exam:
.
Course
Orders/Labs/Results
Orders:
Orders
02/13/25 16:39
CMP [Comprehensive Metabolic Panel] Urgent
Complete Blood Count/With Diff Urgent
02/13/25 17:53
US Breast Right Ltd Urgent
Comment:
Reason For Exam: R breast swelling/pain
02/13/25 19:02
Cephalexin Monohydrate [Keflex] 500 mg PO NOW STA
Abnormal Lab Results
02/13/25
16:39
RBC 4.17 L 10^6/uL
(4.20-5.40)
MCH 31.2 H pg
(27.0-31.0)
Absolute Monos (auto) 0.8 H 10^3/uL
(0.1-0.6)
Monocytes % 10.9 H %
(1.7-9.3)
BUN 18 H mg/dl
(7-17)
02/13/25 16:39
02/13/25 16:39
Vital Signs
Initial and Last Documented VS:
Initial Vital Signs
Temp Pulse Resp BP Pulse Ox
98.5 F 84 18 162/107 97
02/13/25 16:22 02/13/25 16:22 02/13/25 16:22 02/13/25 16:22 02/13/25 16:22
Last Documented Vital Signs
Temp Pulse Resp BP Pulse Ox
98.5 F 84 18 162/107 97
02/13/25 16:22 02/13/25 16:22 02/13/25 16:22 02/13/25 16:22 02/13/25 16:22
*Pulse Oximetry
Patient hypoxic: no
Comment: 97%
*Critical Care Note
Total Time (30-74mins, 75-104mins- exclusive of procedures): Not Applicable
ED Attending Note
-
Portions of this chart may have been created with voice recognition software.� Occasional wrong word or��sound alike� substitutions may have occurred due to the inherent limitations of voice recognition software.
Discharge Plan
Departure
Patient Disposition: Home (Routine Discharge)
Date of Disposition: 02/13/25
Time of Disposition: 19:03
Patient with high blood pressure during this ER visit?: No
Discharge Problem:
Acute breast pain
Instructions: Cellulitis (skin infection) in adults - Discharge instructions
Prescriptions:
New
cephalexin 500 mg capsule
500 mg PO Q8H 7 Days Qty: 21 0RF
No Action
levothyroxine 100 MCG tablet
100 mcg PO MOTUWETHFRSA@0700
lorazepam 1 MG tablet
1 mg PO HS
montelukast [Singulair] 10 mg Tablet
10 mg PO HS
levalbuterol tartrate [Xopenex HFA] 45 mcg/actuation Hfa Aerosol Inhaler
2 inh INHALATION R Q4HPRN PRN (Reason: sob/wheezing)
budesonide-formoterol [Symbicort] 160-4.5 mcg/actuation Hfa Aerosol Inhaler
2 inh INHALATION R BID
simvastatin 40 mg Tablet
40 mg PO HS
Spiriva Respimat 2.5 mcg/actuation Mist
2 puff INHALATION R DAILY
acetaminophen [Tylenol] 325 mg Tablet
650 mg PO BID
gabapentin 300 mg Capsule
300 mg PO BID
ascorbic acid (vitamin C) [Vitamin C] 1,000 mg Tablet
1,000 mg PO DAILY
azithromycin 250 mg Tablet
250 mg PO MOWEFR
calcium polycarbophil [FiberCon] 625 mg Tablet
1,875 mg PO BID
cholecalciferol (vitamin D3) [Vitamin D3] 25 mcg (1,000 unit) Tablet
25 mcg PO DAILY
calcium carbonate-vitamin D3 [Calcium 500 + D] 500 mg-10 mcg (400 unit) Tablet
2 tab PO DAILY
Referrals:
Lesia Collins MD [Active, Surgical]
Reema Lynn DO [Family Provider, Family Practice]
Activity Restrictions/Additional Instructions:
As we discussed your imaging does not show a fluid collection however we are treating you presumptively for a skin infection of the breast. This is very important for you to follow-up with your primary care physician to discuss an outpatient
mammogram, please also consider following up with the breast surgeon as listed on your paperwork
Interventions
Interventions:
*Risk Screen - Suicide Last Done: 02/13/25 16:22
*General Assessment Last Done: 02/13/25 19:02
*Neglect/Abuse Screening Last Done: 02/13/25 16:22
*ED- Fall Risk Assessment Last Done: 02/13/25 19:02
*Nursing Disposition Last Done: 02/13/25 19:11
Discharge Date and Time
Discharge Date/Time: 02/13/25 19:11
Print Language: [id number]
[2025-02-13] MEDS: KEFLEX 500 MG PO (19:06)
== END 2025-02-13 19:11 | disposition home or self-care (01) ==
LOC: EMR 16:20
PROVIDERS: Emergency Medicine; EMERGENCY PHYSICIAN Student in an Organized Health Care Education/Training Program; FAMILY PHYSICIAN Family Medicine
DX: N64.4 Mastodynia (principal); Z87.891 Personal history of nicotine dependence
CPT/HCPCS: 99285; 76642; 80053; 85025

== ENCOUNTER → 2025-02-20 09:31 | Outpatient (REF) | payer MEDICARE, OTHER, SELFPAY | LOC: WDC 09:31 | PROVIDERS: ATTENDING PHYSICIAN Family Medicine | DX: N64.4 Mastodynia (principal) | CPT/HCPCS: 77062; 77066 ==

== ENCOUNTER → 2025-03-17 10:06 | Outpatient (REF) | payer MEDICARE, OTHER, SELFPAY | LOC: WDC 10:06 | PROVIDERS: ATTENDING PHYSICIAN Family Medicine | DX: N64.4 Mastodynia (principal); L08.9 Local infection of the skin and subcutaneous tissue, unspecified | CPT/HCPCS: 76642 ==

== ENCOUNTER → 2025-04-14 11:21 | Outpatient (REF) | payer MEDICARE, OTHER, SELFPAY | LOC: HWRAD 11:21 | PROVIDERS: ATTENDING PHYSICIAN Internal Medicine Critical Care Medicine; FAMILY PHYSICIAN Family Medicine; REFERRING PHYSICIAN Neurological Surgery | DX: J93.83 Other pneumothorax (principal) | CPT/HCPCS: 71046 ==